=== PATIENT | male | born 1965 | race Caucasian/White ===

== ENCOUNTER → 2025-01-25 09:52 | Outpatient (REF) | payer OTHER, SELFPAY | LOC: RAD 09:52 | PROVIDERS: ATTENDING PHYSICIAN Thoracic Surgery (Cardiothoracic Vascular Surgery); FAMILY PHYSICIAN Internal Medicine | DX: I25.10 Atherosclerotic heart disease of native coronary artery without angina pectoris (principal); Z01.810 Encounter for preprocedural cardiovascular examination | CPT/HCPCS: 71275; 74174; 94010; Q9967 ==

== ENCOUNTER 2025-02-01 04:36 | Inpatient (IN) | payer OTHER, SELFPAY ==
[2025-01-25 12:04] VITALS: BMI 25.6
[2025-01-25 12:42] LABS: % Basophils 0.7 % (0-2); % Eosinophils 1.4 % (0-6); % Immature Granulocytes 0.3 % (0-0.5); % Lymphocytes 40.1 % (20.5-51.1); % Monocytes 9.5 % (1.7-9.3); Absolute Eosinophils 0.1 10^3/uL (0-0.7); Absolute Lymphocytes 2.4 10^3/uL (1.2-3.4); Absolute Monocytes 0.6 10^3/uL (0.1-0.6); Absolute Neutrophils 2.8 10^3/uL (1.4-6.5); Hematocrit 40.1 % (39.0-52.0); Hemoglobin 13.6 g/dL (13.0-18.0); Mean Corp Hgb Conc. 33.9 g/dL (33.0-37.0); Mean Corpuscular Hgb 31.3 pg (27.0-31.0); Mean Corpuscular Volume 92.4 fL (80.0-94.0); Mean Platelet Volume 9.4 fL (7.4-10.4); Nucleated Red Blood Cells % 0 % (-); Platelet Count 277 10^3/uL (130-400); Red Blood Cell Count 4.34 10^6/uL (4.70-6.10); Red Cell Dist. Width 12.4 % (11.5-14.5); White Blood Cell Count 5.9 10^3/uL (4.8-10.8)
[2025-01-25 12:52] LABS: APTT 33.1 Sec (23.4-35.0); INR 0.93; PT 12.9 Sec (11.4-14.6)
[2025-01-25 12:53] LABS: Urine Albumin Negative (Neg - Trace); Urine Bilirubin Negative (Negative); Urine Character Clear (Clear); Urine Glucose Negative (Negative); Urine Ketone Negative (Negative); Urine Leukocyte Negative (Negative); Urine Nitrite Negative (Negative); Urine Occult Blood Negative (Negative); Urine Specific Gravity 1.005 (<1.030); Urine Urobilinogen Negative (Neg - 1+)
[2025-01-25 12:55] LABS: Urine Color Straw
[2025-01-25 13:06] LABS: ALT (SGPT) 35 U/L (0-50); AST (SGOT) 28 U/L (17-59); Alkaline Phosphatase 70 U/L (38-126); Blood Urea Nitrogen 18 mg/dl (9-20); Calcium 9.8 mg/dl (8.4-10.2); Carbon Dioxide 28 mmol/L (22-30); Chloride 101 mmol/L (98-107); Direct Bilirubin 0.1 mg/dl (0.0-0.4); Estimated Creatinine Clearance 96 ml/min; Glucose 93 mg/dl (70-99); Potassium 4.7 mmol/L (3.5-5.1); Sodium 138 mmol/L (135-145); Total Bilirubin 1.6 mg/dl (0.2-1.3); Total Protein 7.4 g/dl (6.3-8.2); eGFR > 60.00
--- NOTE | 2025-01-25 13:28 | CM ---
CM met w/ patient, spouse and PEDRITO Mcgowan during PATs for planned CT Surgery, mid-[facility] 02/01.
DIL provided translation as patient speaks primarily Estonian.
Pt. resides w/ spouse in a private, 2 ST home w/ 1 SHANNEN. Functionally, patient is indep. w/ ADLs, mobility without the use of any assisted device.
Pt. has RX plan and uses [facility] [address] for prescription needs.
We reviewed pre and post op routines.
Soap, shower instructions and Cardiac Surgery booklet provided.
We discussed post op MD appointment, Cardiac Rehab and visit from CT Transitional Care RN.
We reviewed post op restrictions to include lifting, driving restrictions.
Plan is for CT Surgery, 02/01.
Anticipated DC plan is for home w/ CT Transitional Care RN.
CM to follow.
[2025-01-25 14:30] LABS: Glycohemoglobin (HgbA1c) 5.1 % (4.0-5.6)
[2025-02-01] VITALS (16 sets, daily range): BP systolic 77–143; BP diastolic 54–88; BMI 25.5
[2025-02-01] MEDS: BACTROBAN 2% OINTMENT 1 APPLIC NASAL ×2 (05:14→20:53)
[2025-02-01] MEDS: PROTONIX 40 MG PO (05:15)
[2025-02-01] MEDS: MAGNESIUM OXIDE 500 MG PO (05:15)
[2025-02-01] MEDS: LOPRESSOR 25 MG PO (05:15)
--- NOTE | 2025-02-01 05:34 | PTCARENOTE ---
pt arrived to CVICU for SDA for CABG with dr Worrell. pt is Armenian speaking and language line is used. pt is clipped and prepped. x2 home CHG showers confirmed. CHG wipes used after pt was clipped. new gown and sheets provided. all admission
questions answered. home meds reviewed. pt asked to removed all jewlery, dentures, etc. pre-op meds given. pt awaiting dr Worrell and CVOR.
--- NOTE | 2025-02-01 06:08 | W.CVOR.SURPR ---
CVOR Surgeon Immed Pre Op
-
I have examined this patient prior to performance of the scheduled procedure.
The patient's condition is unchanged from the time of the dictated/written History and
Physical and the patient is able to undergo the scheduled procedure.
RA MIDCAB
[2025-02-01 07:40] LABS: Urine Albumin Negative (Neg - Trace); Urine Bilirubin Negative (Negative); Urine Character Clear (Clear); Urine Color Yellow; Urine Glucose Negative (Negative); Urine Ketone Negative (Negative); Urine Leukocyte Negative (Negative); Urine Nitrite Negative (Negative); Urine Occult Blood 2+ (Negative); Urine Urobilinogen Negative (Neg - 1+)
[2025-02-01 08:22] LABS: ACT+ - POC 98 Seconds (82-134)
[2025-02-01 08:36] LABS: B.E. - POC -0.8 mmol/L; Glucose - POC 115 mg/dl (70-99); HCO3 - POC 25 mmol/L (21-28); Hematocrit - POC 36 % PCV (42-52); Hemodilution- POC No; Hemoglobin Calculated - POC 12.2; Ionized Calcium - POC 1.18 mmol/L (1.15-1.33); Lactate - POC 1.48 mmol/L (0.36-0.75); O2 Saturation %Calculated-POC 96.9 % (94-98); PCO2 - POC 47 mmHg (35-48); PO2 - POC 96 mmHg (83-108); Potassium - POC 4.6 mmol/L (3.5-5.1); Sodium - POC 144 mmol/L (136-145); Specimen Type - POC Arterial; pH - POC 7.34 (7.35-7.45)
--- NOTE | 2025-02-01 08:52 | CM ---
Patient in OR today for planned CT Surgery.
Reviewed pre admission assessment. Pt. resides w/ spouse in a private, 2 STH/1STE. Functionally, patient is indep. prior to admission w/ ADLs, mobility.
Antic. DC plan is for home w/ family + CT Transitional Care RN.
CM to follow.
[2025-02-01 09:30] LABS: ACT+ - POC 511 Seconds (82-134)
[2025-02-01 09:56] LABS: ACT+ - POC 454 Seconds (82-134)
[2025-02-01 10:15] LABS: B.E. - POC -4.3 mmol/L; Glucose - POC 209 mg/dl (70-99); HCO3 - POC 24 mmol/L (21-28); Hematocrit - POC 35 % PCV (42-52); Hemodilution- POC No; Hemoglobin Calculated - POC 12.1; Lactate - POC 1.25 mmol/L (0.36-0.75); O2 Saturation %Calculated-POC 96.3 % (94-98); PCO2 - POC 58 mmHg (35-48); PO2 - POC 102 mmHg (83-108); Sodium - POC 143 mmol/L (136-145); Specimen Type - POC Arterial; pH - POC 7.23 (7.35-7.45)
[2025-02-01 10:28] LABS: ACT+ - POC 434 Seconds (82-134)
[2025-02-01 10:44] LABS: B.E. - POC -1.6 mmol/L; Glucose - POC 182 mg/dl (70-99); HCO3 - POC 27 mmol/L (21-28); Hematocrit - POC 37 % PCV (42-52); Hemodilution- POC No; Hemoglobin Calculated - POC 12.6; Ionized Calcium - POC 1.14 mmol/L (1.15-1.33); Lactate - POC 1.22 mmol/L (0.36-0.75); O2 Saturation %Calculated-POC 95.6 % (94-98); PCO2 - POC 62 mmHg (35-48); PO2 - POC 95 mmHg (83-108); Potassium - POC 5.5 mmol/L (3.5-5.1); Sodium - POC 143 mmol/L (136-145); Specimen Type - POC Arterial; pH - POC 7.24 (7.35-7.45)
[2025-02-01 10:45] LABS: ACT+ - POC 104 Seconds (82-134)
--- NOTE | 2025-02-01 11:00 | W.PN.CT.SURG ---
CT Surgery Operative Note
-
CARDIAC SURGERY OPERATIVE REPORT
Preoperative Diagnosis: Coronary Artery Disease with proximal LAD involvement and recent STEMI requiring PCI intervention to the RCA and proximal circumflex
Postoperative Diagnosis: Same
Procedure(s) Performed:
1. Robotic assisted MIDCAB (single-vessel bypass REINOSO in situ to LAD)
2. Robotic assisted harvest of internal mammary artery with anterior mini thoracotomy for CABG
3. Transesophageal echocardiography
4. Transonic Flowprobe assessment of REINOSO graft
Date of Surgery: 02/01/2025
Comorbidities:
1. Coronary artery disease involving the proximal LAD, chronic total occlusion
2. Recent STEMI requiring PCI intervention
3. Hypertension
4. Hyperlipidemia
5. Ischemic cardiomyopathy with LVEF of approximately 40% with severe hypokinesis of the inferior wall
Attending Surgeon: Cecilio Worrell MD, MS
Assistants: Michaela Chiu PA-C (present and necessary to first line supervisor, exchanging robotic instruments, retraction, suction, exposure, suture management, and wound closure under my direction)
Anesthesiology: Aj Cerna MD and TRACI Hill
Scrub and Circulating RNs: Yessi Vasques RN, Hilda Menard RN
Tire Layer: Asia Madrigal CCP
Anesthesia: GETA
EBL: per perfusion records
Products: None
Indication(s) for Procedures: This is a 60-year-old male who presented to [facility] with abdominal pain and was found to have ST elevation [place]. He underwent a Jacquard Loom Card Changer procedure and had stenting to his RCA. He was also found to have
significant CAD of the left system and so was brought back electively for intervention on his proximal circumflex. He had a chronic total occlusion of the REINOSO proximally with very faint collateralization to the LAD distally. The STS risk was
discussed with the patient in the office and the shared decision making was to pursue a single-vessel bypass using his mammary artery to his LAD via a mini invasive approach as part of a hybrid procedure for total revascularization.
Conduit(s) Quality/Internal Diameter:
REINOSO -thin pedicle, flow probe analysis, mean flow of 10 cc/min, PI of 2.5
Target(s) Quality/Internal Diameter:
LAD -average, small and atretic appearing able to easily fit a 1.0 mm shunt, there was some backbleeding from the vessel before shunt placement
Findings: His left ventricular ejection fraction did improve on our preoperative echocardiogram intraoperatively, it was approximately 50% with no significant regional wall motion abnormalities. Following surgery his EF remained the same at
approximately 50%. There were no new regional wall motion abnormalities at the inclusion of the case. The REINOSO was harvested in a thin pedicle fashion. The mammary graft was verified with Doppler probe to have excellent signals. Flow probe numbers
were listed above. He did not require any blood products, did not require any inotropic support, and did not require any pacing wires as he maintained sinus rhythm throughout the procedure.
Description of Procedure: The patient was taken to the operating room. Their identity and procedure to be performed were verified and they were positioned supine on the operating table. Induction via general anesthesia with endotracheal intubation
was performed and central venous access and arterial monitoring were inserted. A preoperative transesophageal echocardiogram was performed to assess cardiac function and valvular function. The patient was then prepped and draped from chin to feet in
a sterile fashion and positioned with left side bumped up and left arm down. A preoperative time-out was performed with all members of the team present. A Veress needle was used to enter the chest after stopping ventilation with the left lung
verified by anesthesia. We started with slow pressure insufflation which they tolerated. An 8 mm port was inserted in the fourth intercostal space laterally and a camera was inserted verifying no intrathoracic iatrogenic injuries. 2 additional
ports (8 mm and 8mm) were placed along the midaxillary line on either side of the camera port. Single 12 mm air seal port was used for the assistant clinical nurse manager to pass instruments and sutures. The robotic platform was then docked and targeted towards the
mammary. The mammary was harvested in a skeletonized fashion. A posterior pericardiotomy was created to facilitate drainage. Once sufficient length was obtained, an anterior pericardiotomy was created to identify the distal target. Full
heparinization was given (a total of 27,000 units). 3 Hem-o-bren clips were used to occlude and divide the mammary distally at its bifurcation, and a single silk suture was used to secure the mammary at the clip to the pericardium overlying the LAD
target. The robot platform was then undocked and the patient and a left anterior thoracotomy was created over the target vessel. Upon entering the thoracic cavity the mammary and LAD were visible. A soft tissue and thoracotomy retractor was placed
to facilitate exposure and a pericardial well was created. A cardiac stabilizer was fixed and placed over the target. The ACT was confirmed to be over 400.
The cardiac suction stabilizer was used to isolate the LAD target. The distal end of the mammary was prepped and beveled to size. We verified orientation and length of the PRABHJOT and found brisk flow. A coronary arteriotomy was created and enlarged
with coronary schwartz scissors. A 1mm shunt was inserted to facilitate exposure and continued point hope ira coronary perfusion. An end-to-side anastomosis was created with a 7-0 prolene. The bulldog on the mammary was removed which demonstrated excellent
graft flow. The shunt was then remove and demonstrated excellent point hope ira flow. Appropriate hemostasis was confirmed. The mammary graft was inspected and was free from kinking or twisting and flowprobe evaluation demonstrated good flow and PI. A test
dose of protamine was administered and the patient was monitored for any adverse reaction before resuming protamine. A 19F galilea drain into the pericardium and through the posterior pericardiotomy into the left chest. Fascia was approximated with #1
vicryl suture. Local analgesia was administered to the surgical sites. The subcutaneous, dermis and epidermis were closed in layers in a running fashion. The skin wound was cleansed and dressed.
All instrument, sponge, and needle counts were confirmed to be correct x 2 at the end of the operation. The patient was transferred to the cardiac intensive care unit extubated in critical but stable condition.
I, Dr. Cecilio Worrell, was present, scrubbed for, and performed all critical elements of this procedure.
Cecilio Worrell MD, MS
Cardiothoracic Surgeon
[facility]
This operative dictation was created using the [employer] dictation system. Please excuse any grammatical, typographical, or 'sound alike' errors
--- NOTE | 2025-02-01 11:25 | PTCARENOTE ---
Received from [facility] @ 1120. Patient lethargic but arousable. Drips Levo and insulin. Sinus bradycardia HR 59 BP 86/50. No wires. Heart sounds audible. Rub noted. Radial pulses palpable bilaterally. Pedal pulses present biltarally on the
posterior tibialis. No edema noted. r but diminished anterior bilaterally. POX 95% 6L simple mask. 1x left pleural chest tube drainging red fluid WNL. Set to wall suction at -20 w/ no crepitus, tidaling, or air leaks. Thapa draining WNL. Left
mid clavicular incision distal to xiphoid process. dry, approximated, and open to air. CT dressing dry and intact. NATHALY shetty w/ marilu @ 45. CI 2.82 CO 5.52. PAP 31/10. Left radial A-line. Right forearm PIV patent and intact.
--- NOTE | 2025-02-01 11:36 | W.PN.UPDATE ---
Update Note
Progress Note Update
60 year old male electively admitted 02/01/25 for CABG due to LAD disease. Recent JUSTUS-RCA d/t STEMI (11/30/24). Prior PCI of LM/dLCx
IV fluids: 1500
U.O.:� 350
Blood:� none
Wires:� none
Drips: Levophed @ 6
Sedatives:� N/A
�
NEURO: drowsy, extubated in the OR, pupils +2mm B/L, LEVI spontaneously
RESP: Lungs clear B/L. 1 L pleural/mediastinal (0cc on arrival) chest tube to -20cm suction. No air leak, no crepitus
CV: RRR +S1, S2, no S3, no�rub, no murmur. Dermabond to mini left anterior thoracotomy. RIJ w/Knobel locked @ 46cm. PA 01/11; CVP 8; C.O XX/CI XX
ABD: round, soft, no BS
EXT: no edema, +2/4 DP pulses B/L, no femoral bruit, left radial A-line intact
: Thapa with clear yellow urine
�
A/P: POD #0 s/p RA MIDCAB x 1 REINOSO-LAD
ALESSANDRA: EF�55-60%
- extubated in OR
- Insulin x 24h
# CAD
- begin ASA, Plavix, Zetia, statin, beta navi
�
# acute surgical blood loss anemia-expected
- trend CBC
�
�# Incidental finding of right pulmonary nodules on CT scan
- F/U CT chest recommended in 12 months to monitor
--- NOTE | 2025-02-01 11:41 | W.PN.CD ---
Addendum entered and electronically signed by Julian Carlisle MD 02/01/25 14:39:
I saw and examined the patient.
The MATE FOURTH's note was reviewed and I agree with the note.
Comment: 60 y/o male (patient of Dr. Bland) with hypertension, dyslipidemia, improved ICM (previously EF 40%), and hx STEMI/CAD with stenting who is now s/p MIDCAB.
- wean inotropes as able
- routine post-op care
Original Note:
Today's Communication / Plan
-
-close post-op monitoring and care per CT surgery and CVICU protocol
Impression / Plan
-
60 y/o male (patient of Dr. Bland) with hypertension, dyslipidemia, improved ICM (previously EF 40%), and hx STEMI/CAD with stenting who is now s/p MIDCAB.
CAD with hx NH and stenting:
-now s/p robotic assisted MIDCAB (single-vessel bypass REINOSO in situ to LAD). Robotic assisted harvest of internal mammary artery with anterior mini thoracotomy for CABG with Dr. Worrell 02/01/25.
-extubated and on face mask
-CT and pedro in place
-remains on Levophed, which requires intensive monitoring
-post-op EKG stable in SR
-follow telemetry
-ASA, statin, BB
HTN:
-monitor post-op, currently on levophed
HLD:
-statin
ICM, improved:
-EF was 40%, now arpund 50%
-on ARB and BB as OP
Data:
Echo 01/24/25: Overall left ventricular function low normal with wall motion abnormality. EF 50 to 55%. Stage I diastolic dysfunction. No significant valve disease.
Physical Exam
Vital Signs/Labs
Vital Signs
BP Pulse Ox
141/82 99
02/01/25 04:43 02/01/25 04:42
01/31/25 02/01/25 02/02/25
06:59 06:59 06:59
Actual Weight 78.4 kg
PT 12.9 Sec (11.4-14.6) 01/25/25 12:18
INR 0.93 01/25/25 12:18
APTT 33.1 Sec (23.4-35.0) 01/25/25 12:18
Physical Exam
Constitutional: No acute distress
Cardiovascular: Rhythm & rate is regular
Respiratory: Other (on facemask; coarse lung sounds, CT in place)
Neuro/Psych: Other (recovering from anesthesia)
Data Reviewed
-
Date of Service: February 01, 2025
EKG: Tracing Personally Visualized and interpreted (NSR LAD- no acute change from previous)
Echo: Report Reviewed by me (as noted)
Labs: Labs Reviewed by me
[2025-02-01 11:49] LABS: B.E. -3.2 mmol/L; Hematocrit 35.8 % (39.0-52.0); Ionized Calcium 1.13 mMOL/L (1.15-1.33); O2 Saturation % 98.4 % (94-98); PCO2 51 mmHg (35-48); PO2 107 mmHg (83-108); Platelet Count 224 10^3/uL (130-400); Potassium 4.3 mMOL/L (3.5-5.1); Sodium 137 mMOL/L (136-145); pH 7.28 (7.35-7.45)
[2025-02-01 12:00] LABS: APTT 33.5 Sec (23.4-35.0); INR 1.26; PT 16.3 Sec (11.4-14.6)
[2025-02-01 12:02] LABS: Blood Urea Nitrogen 18 mg/dl (9-20); Estimated Creatinine Clearance 109 ml/min; Glucose 132 mg/dl (70-99); Magnesium 2.3 mg/dl (1.6-2.3)
[2025-02-01 12:05] LABS: Glucose - Point of Care 135 mg/dl (70-99)
[2025-02-01 12:16] LABS: Glucose - Point of Care 135 mg/dl (70-99)
[2025-02-01] MEDS: NSS 500 IV (12:17)
[2025-02-01] MEDS: ANCEF 10 IV ×2 (12:17)
[2025-02-01] MEDS: NEURONTIN PO (12:17)
[2025-02-01] MEDS: CALCIUM GLUCONATE 100 IV (12:18)
--- NOTE | 2025-02-01 12:36 | CON.INTV ---
Consultation
Consultation Request
Date/Time Consultation Requested: 02/01/2025 - 105
Date/Time Consultation Performed: 02/01/2025 - 1116
Requesting Provider: CHARLES Saxena
Performing Provider: Dr. Lin
Reason for Consultation: s/p MIDCAB
Medical History
-
Chief Complaint: Elective MIDCAB
History of Present Illness:
60-year-old male former tobacco smoker with a past medical history of multivessel CAD, hypertension, GERD, dyslipidemia and ICM who presents with elective minimally invasive direct coronary artery bypass. Patient known to the cardiothoracic surgery
service with last visit on 01/16/[address] Worrell. Patient had gone to [facility] for upper abdominal pain with nausea and found to have an ST elevation HI on 11/30/2024 and taken to [facility] where he was found to have significant
multivessel CAD involving the mid RCA as well as an occluded ostial LAD with collaterals and significant circumflex and ramus lesions. He underwent successful stenting and aspiration thrombectomy of the RCA and brought back for additional stenting
on 12/04/2024 to the mid�distal circumflex and distal left main into the proximal circumflex with good result. 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 Risks and benefits of a cardiothoracic intervention were reviewed and patient
agreed to the procedure. Today he went underwent a robotic assisted minimally invasive direct coronary artery bypass with REINOSO in situ to LAD. Procedure went well with no complications and he was transferred to the CVICU postoperatively.
Clinical Nursing Professor service is now consulted for additional management/recommendations.
When I saw the patient, he had a ready been extubated in the CV[facility]. He is currently on a facemask with 6 L/min, breathing comfortably and saturating 93%. Heart rate 76, BP via left radial A-line: 106/56, BP via NIBP: 90/57, PAP 31/14 and CO/CI:
7.38/3.77. Currently on Levophed at 1 mcg/min and insulin drip at 2.3 units/hr. Left pleural chest tube in place.
PMHx: History of acute inferior HI, CAD, hypertension, GERD, dyslipidemia, ICM
PSHx: Coronary catheterization with stent placement
Past Medical History
Past Medical History: Other (Above as per HPI)
Past Surgical History: Other (Above as per HPI)
Social History
Tobacco: Former Smoker (Smoked 1 PPD x 25 years)
Alcohol: None
Drug: None
Employment: Employed (Construction)
Family History
Family History: CAD (Mother) and Other (Father: Stomach issues)
Allergies / Home Medications
Allergies
Allergy/AdvReac Type Severity Reaction Status Date / Time
No Known Allergies Allergy Verified 01/23/25 11:37
Home Medications
�Medication �Instructions �Recorded �Confirmed �Last Taken �Type
aspirin 81 mg PO 1XD Blood Clot 02/01/25 02/01/25 01/31/25 21:00 History
Prevention/Tx
atorvastatin 40 mg tablet 40 mg 1XD High Cholesterol 02/01/25 02/01/25 01/31/25 20:00 History
famotidine 20 mg tablet 20 mg PO HS Gastrointestinal Issue 02/01/25 02/01/25 01/31/25 20:00 History
metoprolol tartrate 50 mg tablet 50 mg PO Q12H Heart 02/01/25 02/01/25 01/31/25 20:00 History
Disease/Condition
valsartan 40 mg tablet 40 mg 1XD Blood Pressure 02/01/25 02/01/25 01/31/25 20:00 History
Review of Systems
-
Unable to Obtain full review of systems at this time due to: Acuity
Vitals / Labs / Diagnostic Testing
Vital Signs
Temp Pulse Resp BP Pulse Ox
95.7 F L 63 15 106/71 99
02/01/25 12:00 02/01/25 12:10 02/01/25 12:10 02/01/25 12:00 02/01/25 12:10
Lab Data
02/01/25 11:31
Laboratory Results
02/01/25
11:31
PT 16.3 H
INR 1.26
APTT 33.5
pH 7.28 L
pCO2 51 H
pO2 107
HCO3 24.0
O2 Delivery Level
Diagnostic Testing:
Physical Exam
-
HEENT: Normocephalic and Anicteric
Cardiovascular: S1/S2 and Peripheral Edema (negative)
Respiratory: Wheeze (negative), Rales (negative), Rhonchi (negative) and Non-Labored Respirations
GI: Soft, Non Distended, Non Tender and Normal Bowel Sounds
Neurology: Tremors (negative) and Other (Drowsy but easily arousable to voice)
Skin: Warm and Dry
General: Respiratory Distress (negative), Comfortable, Fever (negative) and Chills (negative)
Assessment
-
Assessment: 60-year-old male former tobacco smoker with a past medical history of multivessel CAD, hypertension, GERD, dyslipidemia and ICM who presents with elective minimally invasive direct coronary artery bypass. Patient known to the
cardiothoracic surgery service with last visit on 01/16/[address] Worrell. Patient had gone to [facility] for upper abdominal pain with nausea and found to have an ST elevation HI on 11/30/2024 and taken to [facility] where he was
found to have significant multivessel CAD involving the mid RCA as well as an occluded ostial LAD with collaterals and significant circumflex and ramus lesions. He underwent successful stenting and aspiration thrombectomy of the RCA and brought
back for additional stenting on 12/04/2024 to the mid�distal circumflex and distal left main into the proximal circumflex with good result. 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 Risks and benefits of a cardiothoracic intervention
were reviewed and patient agreed to the procedure. On 02/01/2025, he went underwent a robotic assisted minimally invasive direct coronary artery bypass with REINOSO in situ to LAD. Procedure went well with no complications and he was transferred to
the CVICU postoperatively. Clinical Nursing Professor service is now consulted for additional management/recommendations.
Chronic conditions ROD PILER: History of acute inferior HI, CAD, hypertension, GERD, dyslipidemia, ICM
Impression:
#Multivessel CAD with proximal LAD involvement with recent STEMI requiring PCI intervention to the RCA + proximal left circumflex now s/p robotic assisted MIDCAB (REINOSO in situ to LAD � POD #0)
#Acute anemia due to above
#Acute respiratory acidosis
#Hypocalcemia
#Hypertension
#Hyperlipidemia
#ICM with LVEF 40% with severe hypokinesis of the inferior wall - his EF has recovered with ALESSANDRA on 02/01/2025 showing LVEF 45-50% with no regional WMA seen and normal RV function
#Former tobacco smoker (Smoked 1 PPD x 25 years)
Plan:
Patient had already been extubated prior to arriving to the CVICU. Currently on a facemask with 6 L/min nasal cannula, breathing comfortably and saturating 93%
Wean down supplemental O2 and can change to nasal cannula once he is more awake and.
Maintain SpO2 >90-94%
Given that he had acute respiratory acidosis earlier today, would re-check a venous blood gas tomorrow morning to assure that the pH + pCO2 are stable
prn nebulized bronchodilators - not currently bronchospastic
Once he is more awake, would encourage incentive spirometer use q1hr while awake
Pulmonary artery catheter parameters will be followed
Pressors/antihypertensive/inotropes/diuretics will be provided as needed
Maintain MAP>65
Replete electrolytes with K>4, Mg>2
Monitor chest tube output (left pleural chest tube x 1)
Monitor hemoglobin
Monitor platelet count and coags
Transfuse blood products as needed to maintain Hb>7g/dL, plt>50k (given post-operative status)
CT surgery managing chest tubes
Monitor blood sugar to maintain euglycemia with goal BG 110-140
Insulin drip per protocol
Aspiration precautions
DVT prophylaxis
Early nutrition
Early mobilization
Critical care statement: A total of 38 minutes of critical care time was provided for this patient today. This includes management of ventilator, spontaneous breathing trial, arterial blood gases, pressors, of unstable vital signs, evaluation of the
patient at bedside, reviewing the patient's pertinent medical records including radiographs, microbiology, laboratory evaluations, and discussion with primary team and critical care nursing.
--- NOTE | 2025-02-01 12:45 | PTCARENOTE ---
CT SCHOOL TEACHER Maria Del Carmen aware of urine output. [address] SCHOOL TEACHER Maria Del Carmen.
[2025-02-01] MEDS: LR 500 IV (13:02)
[2025-02-01 13:11] LABS: Glucose - Point of Care 120 mg/dl (70-99)
[2025-02-01] MEDS: OFIRMEV 100 IV (13:40)
[2025-02-01 14:06] LABS: Glucose - Point of Care 89 mg/dl (70-99)
[2025-02-01 15:09] LABS: Hematocrit 35.5 % (39.0-52.0); Hemoglobin 12.3 g/dL (13.0-18.0); Platelet Count 224 10^3/uL (130-400)
[2025-02-01 15:11] LABS: Glucose - Point of Care 99 mg/dl (70-99)
[2025-02-01] MEDS: LOW STRENGTH ASPIRIN 81 MG PO (15:57)
[2025-02-01] MEDS: ANCEF 5 IV (15:57)
[2025-02-01] MEDS: TYLENOL PO (16:01)
[2025-02-01 16:09] LABS: Glucose - Point of Care 100 mg/dl (70-99)
[2025-02-01] MEDS: NEURONTIN 100 MG PO ×2 (16:24→21:32)
[2025-02-01] MEDS: PACERONE 200 MG PO ×2 (16:24→21:32)
--- NOTE | 2025-02-01 16:26 | PTCARENOTE ---
Patient assessment unchanged. Levo and insulin titrating per protocol. Patient tolerating sips of water and ice chips. POX 97% 4L NC. Last CI 3.28 CO 6.43.
[2025-02-01 17:53] LABS: Glucose - Point of Care 90 mg/dl (70-99)
--- NOTE | 2025-02-01 18:30 | PTCARENOTE ---
BP stable. Ordered to removed A-line and [place] per CT BUS ASSISTANT Maria Del Carmen.
[2025-02-01 20:09] LABS: Glucose - Point of Care 110 mg/dl (70-99)
[2025-02-01] MEDS: SENOKOT-S 1 TABLET PO (20:53)
[2025-02-01] MEDS: TYLENOL 1000 MG PO (21:32)
[2025-02-01 22:08] LABS: Glucose - Point of Care 94 mg/dl (70-99)
[2025-02-01 22:59] LABS: Glucose - Point of Care 101 mg/dl (70-99)
--- NOTE | 2025-02-01 23:30 | PTCARENOTE ---
Patient received resting in bed. Patient's son at bedside - Interprets for patient. Patient A+A+Ox3. No neurological deficits noted. No c/o pain or discomfort. Room air. SpO2 92%. No s/s of respiratory distress. No c/o SOB. Left Pleural
chest tube intact - Small amount of red drainage - No air leak - No crepitus noted - Dressing intact. Sinus Rhythm. Heart rate 80-90's. Patient with no c/o chest pain, pressure or discomfort. Hypoactive to normoactive bowel sounds. No BM. No
c/o nausea. No vomiting. Thapa catheter - Temperature sensing - Shira, yellow urine - Outputs as documented. Positive, palpable pulses. Left anterior chest to left lateral chest - Incision - Surgical adhesive - Intact - Open to air. Right I.J.
Cordis. Insulin gtt. Assessment as documented.
[2025-02-02] VITALS (16 sets, daily range): BP systolic 100–135; BP diastolic 63–77; PULSE 79; O2SAT 95–96; BMI 26.1
[2025-02-02 00:15] LABS: Glucose - Point of Care 104 mg/dl (70-99)
[2025-02-02] MEDS: ANCEF 5 IV ×2 (00:24→09:19)
[2025-02-02] MEDS: DILAUDID 0.25 MG IV (00:25)
--- NOTE | 2025-02-02 01:00 | PTCARENOTE ---
Patient resting in bed. Dozing intermittently. IV Dilaudid 0.25mg given for pain management. O2 2L HS. SpO2 94%. Assessment as documented.
[2025-02-02 01:14] LABS: Glucose - Point of Care 108 mg/dl (70-99)
[2025-02-02 02:28] LABS: Glucose - Point of Care 106 mg/dl (70-99)
[2025-02-02 04:30] LABS: Glucose - Point of Care 105 mg/dl (70-99)
[2025-02-02 04:42] LABS: Venous Blood Gas B.E. -1.3 mmol/L (-4 to +4); Venous Blood Gas HCO3 24.3 mmol/L (22-27); Venous Blood Gas O2 Sat % 95.7 %; Venous Blood Gas pCO2 43 mmHg (35-48); Venous Blood Gas pH 7.36 (7.32-7.43); Venous Blood Gas pO2 73 mmHg (30-50)
[2025-02-02 04:46] LABS: Venous Blood Gas O2 Therapy 6L/min
[2025-02-02 04:47] LABS: Hematocrit 36.5 % (39.0-52.0); Hemoglobin 12.6 g/dL (13.0-18.0); Mean Corp Hgb Conc. 34.5 g/dL (33.0-37.0); Mean Corpuscular Hgb 31.8 pg (27.0-31.0); Mean Corpuscular Volume 92.2 fL (80.0-94.0); Mean Platelet Volume 9.7 fL (7.4-10.4); Platelet Count 225 10^3/uL (130-400); Red Blood Cell Count 3.96 10^6/uL (4.70-6.10); Red Cell Dist. Width 12.5 % (11.5-14.5); White Blood Cell Count 15.5 10^3/uL (4.8-10.8)
[2025-02-02] MEDS: ROXICODONE 5 MG PO ×2 (05:11→20:33)
[2025-02-02] MEDS: TYLENOL 1000 MG PO ×3 (05:12→22:37)
[2025-02-02 05:22] LABS: Blood Urea Nitrogen 20 mg/dl (9-20); Calcium 8.9 mg/dl (8.4-10.2); Carbon Dioxide 24 mmol/L (22-30); Chloride 107 mmol/L (98-107); Estimated Creatinine Clearance 109 ml/min; Glucose 103 mg/dl (70-99); Potassium 4.2 mmol/L (3.5-5.1); Sodium 139 mmol/L (135-145); eGFR > 60.00
[2025-02-02 06:02] LABS: Glucose - Point of Care 114 mg/dl (70-99)
--- NOTE | 2025-02-02 06:15 | PTCARENOTE ---
Patient slept. Roxicodone 5mg PO for pain management. AM lab collected and sent. Patient given CHG bath and linens changed. Thapa catheter removed at 0600 without difficulty - Due to void at 12pm. OOB to chair without difficulty. Standing
scale weight 80.1 kg. Assessment/Interventions as documented.
--- NOTE | 2025-02-02 06:37 | W.PN.CT ---
Today's Communication / Plan
-
-pod #1
-doing well, no issues overnight, no complaints
-CT output: L pleur/med 40/180 in 12/24 hrs
-current meds (ASA, Plavix, Lipitor, Amio, Lopressor, Protonix)
-encourage IS, OOB, ambulate
Assessment / Plan
-
-CAD - s/p Robotic assisted MIDCAB (single-vessel bypass REINOSO in situ to LAD) by Dr. Worrell on 02/01/25, pod #1
- LVEF 50% pre and postop with no significant regional wall motion abnormalities
- Coronary artery disease involving the proximal LAD, chronic total occlusion
- Recent STEMI requiring PCI intervention
- Hypertension
- Hyperlipidemia
- Ischemic cardiomyopathy with LVEF of approximately 40% with severe hypokinesis of the inferior wall
- Acute postop blood loss anemia- stable, no transfusion
- Acute postop hypovolemia with subsequent hypervolemia
- Acute postop atelectasis
Discussed patient care with: Nursing and Care Team
Subjective
-
Date of Service: February 02, 2025
Objective Data
-
PT 16.3 Sec (11.4-14.6) H 02/01/25 11:31
INR 1.26 02/01/25 11:31
APTT 33.5 Sec (23.4-35.0) 02/01/25 11:31
Vital Signs
Vital Signs
Temp Pulse Resp BP Pulse Ox
99.4 F 85 18 119/71 93
02/02/25 03:00 02/02/25 03:10 02/02/25 03:00 02/02/25 03:00 02/02/25 03:10
CT Intake/Output/Weight
02/01/25 02/01/25 02/02/25
06:59 18:59 06:59
Intake Total 1031.7 / 1890.7 859.0 / 1890.7
Output Total 490 / 1060 570 / 1060
Balance 541.7 / 830.7 289.0 / 830.7
SaO2: 93
Physical Exam
-
General: Awake and AOx3
Cardiovascular: Regular rate & rhythm, No Murmurs and No Rub
Respiratory: Decreased Breath Sounds
Sternum: Stable
Incision: Clean, Dry and Intact
Extremities: No Edema (2+DPs b/l)
Abdomen: soft, nontender, nondistended, + decreased bowel sounds
Data Reviewed
-
Lab Results: Results Reviewed
Medications: Active Meds Reviewed
Chest X-Ray: Report Reviewed
ECG: Report Reviewed
--- NOTE | 2025-02-02 07:59 | W.PN.INTV ---
Today's Communication / Plan
Recommendations
Up OOB as tolerated
Removal of left-sided pleural chest tube per CT surgery team
Goal BG 110�140
Pain control
Cardiac rehab consult
Patient now being downgraded to CVICU�telemetry status. No additional recommendations at this time. Sales Training Representative/Pulmonary service will now sign off. Please reconsult if there are any additional questions/concerns, or if patient's respiratory
status deteriorates.
Assessment
-
Assessment: 60-year-old male former tobacco smoker with a past medical history of multivessel CAD, hypertension, GERD, dyslipidemia and ICM who presents with elective minimally invasive direct coronary artery bypass. Patient known to the
cardiothoracic surgery service with last visit on 01/16/[address] Worrell. Patient had gone to [facility] for upper abdominal pain with nausea and found to have an ST elevation [place] on 11/30/2024 and taken to the Client Development Manager where he was
found to have significant multivessel CAD involving the mid RCA as well as an occluded ostial LAD with collaterals and significant circumflex and ramus lesions. He underwent successful stenting and aspiration thrombectomy of the RCA and brought
back for additional stenting on 12/04/2024 to the mid�distal circumflex and distal left main into the proximal circumflex with good result. 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 Risks and benefits of a cardiothoracic intervention
were reviewed and patient agreed to the procedure. On 02/01/2025, he went underwent a robotic assisted minimally invasive direct coronary artery bypass with REINOSO in situ to LAD. Procedure went well with no complications and he was transferred to
the CVICU postoperatively. Sales Training Representative service is now consulted for additional management/recommendations.
Chronic conditions XRAY TECH: History of acute inferior KS, CAD, hypertension, GERD, dyslipidemia, ICM
Impression:
#Multivessel CAD with proximal LAD involvement with recent STEMI requiring PCI intervention to the RCA + proximal left circumflex now s/p robotic assisted MIDCAB (REINOSO in situ to LAD � POD #1)
#Acute anemia due to above
#Acute respiratory acidosis - now resolved
#Hypocalcemia - resolved
#Hypertension
#Hyperlipidemia
#ICM with LVEF 40% with severe hypokinesis of the inferior wall - his EF has recovered with ALESSANDRA on 02/01/2025 showing LVEF 45-50% with no regional WMA seen and normal RV function
#Former tobacco smoker (Smoked 1 PPD x 25 years)
Plan:
Patient had already been extubated prior to arriving to the CVICU on 02/01/2025. Currently on room air, breathing comfortably, saturating 94%
Wean down supplemental O2 and maintain SpO2 >90-94%
Blood gas recheck this morning shows stable pH at 7.36 with pCO2 43. No need to continue rechecking blood gases at this time
prn nebulized bronchodilators - not currently bronchospastic
Encourage incentive spirometer use q1hr while awake
Pulmonary artery catheter parameters will be followed
Pressors/antihypertensive/inotropes/diuretics will be provided as needed
Maintain MAP>65
Replete electrolytes with K>4, Mg>2
Monitor chest tube output (left pleural chest tube x 1)
Monitor hemoglobin
Monitor platelet count and coags
Transfuse blood products as needed to maintain Hb>7g/dL, plt>50k (given post-operative status)
CT surgery managing chest tubes
Monitor blood sugar to maintain euglycemia with goal BG 110-140
Insulin drip now discontinued - recommend to use ISS to maintain BG goal as above
Aspiration precautions
DVT prophylaxis
Early nutrition
Early mobilization
Patient now being downgraded to CVICU�telemetry status. No additional recommendations at this time. Sales Training Representative/Pulmonary service will now sign off. Thank you for allowing us to be involved in the care of this patient. Please reconsult if there
are any additional questions/concerns, or if patient's respiratory status deteriorates.
Total time spent today was 56 minutes for this encounter. Time includes reviewing laboratory test/imaging results, reviewing pertinent medical records, obtaining and reviewing medical history, performing an appropriate exam, ordering medications,
tests and procedures. Time also includes documentation of this encounter, coordinating patient care and communicating with other healthcare professionals. Total time does not include separately billed tests performed on this date of service.
Subjective Dataa
Subjective Data
Date of Service:
Date of Service: February 02, 2025
Chief Complaint: Sales Training Representative Follow Up
Subjective:
Patient was seen and evaluated today at bedside. Left pleural chest tube in place. Currently on room air breathing comfortably, saturating 94%. Heart rate 95. No acute events reported overnight. Remains afebrile.
Review of Systems
General: Other (Negative unless mentioned above)
Objective Data
Data Reviewed
Vital Signs / I&O / Oxygen:
Vital Signs
Temp Pulse Resp BP Pulse Ox
97.7 F 84 16 107/70 94
02/02/25 15:44 02/02/25 15:44 02/02/25 15:44 02/02/25 15:44 02/02/25 15:44
Intake and Output
02/01/25 02/02/25 02/03/25
06:59 06:59 06:59
Intake Total 1934.9 / 1934.9 251.8 / 251.8
Output Total 1330 / 1330 520 / 520
Balance 604.9 / 604.9 -268.2 / -268.2
SaO2 94
Nasal Cannula flow liters per 2
minute
Physical Exam
General: Respiratory Distress (negative), Comfortable, Chills (negative) and Sweats (negative)
HEENT: Normocephalic and Anicteric
Cardiovascular: S1-S2 and Peripheral Edema (negative)
Respiratory: Wheeze (negative), Crackles (negative), Rhonchi (negative), Non-Labored Respirations and Chest Tube (Left pleural chest tube x 1)
GI: Soft, Non Distended, Non Tender and Normal Bowel Sounds
Neurology: AO x 3 and Tremors (negative)
Skin: Warm, Dry, Cyanosis (negative) and Jaundice (negative)
Labs/Micro/Reports
Lab Data
02/02/25 04:24
02/02/25 04:24
[2025-02-02 08:24] LABS: Glucose - Point of Care 99 mg/dl (70-99)
--- NOTE | 2025-02-02 09:13 | W.PN.ANS.POP ---
Anesthesia Post Operative
- Anesthesia Post Op Note
Vital Signs Stable-See Nursing Note: Yes
Airway Patent: Yes
Adequate Pain Control: Yes
Change in Mental Status: No
Current Postoperative Nausea & Vomiting: No
Anesthesia Complications: No
General Anesthetic Recall: No
Unplanned Admission: No
Post Op Hydration Adequate: Yes
[2025-02-02] MEDS: LIDOCAINE 4% PATCH 1 PATCH TOPICAL (09:19)
[2025-02-02] MEDS: SENOKOT-S 1 TABLET PO ×2 (09:20→20:26)
[2025-02-02] MEDS: LIPITOR 40 MG PO (09:20)
[2025-02-02] MEDS: LOPRESSOR 12.5 MG PO ×3 (09:20→20:26)
[2025-02-02] MEDS: NEURONTIN 100 MG PO ×3 (09:20→22:36)
[2025-02-02] MEDS: PROTONIX 40 MG PO (09:20)
[2025-02-02] MEDS: PACERONE 200 MG PO ×3 (09:20→22:37)
[2025-02-02] MEDS: PLAVIX 75 MG PO (09:20)
[2025-02-02] MEDS: BACTROBAN 2% OINTMENT 1 APPLIC NASAL ×2 (09:21→20:26)
[2025-02-02] MEDS: LOW STRENGTH ASPIRIN 81 MG PO (09:21)
--- NOTE | 2025-02-02 09:35 | PTCARENOTE ---
assumed care of pt from previous shift RN, sinus rhythm on tele, VSS, + peripheral pulses, + rub, trace edema to bilateral lower extremities. Lungs clear, pox 95% on RA. +bs, tolerating PO intake, DTV. Cordis and PIV flush easily. LP CT w red
drainage, surgical site w glue intact, Plan of care reviewed w the pt and questions encouraged.
--- NOTE | 2025-02-02 10:21 | W.PN.CD ---
Today's Communication / Plan
-
OOB and ISB
Slow resumption of anti-HTN
Impression / Plan
-
60 y/o male (patient of Dr. Bland) with hypertension, dyslipidemia, improved ICM (previously EF 40%), and hx STEMI/CAD with stenting who is now s/p MIDCAB.
CAD with hx MO and stenting:
-now s/p robotic assisted MIDCAB (single-vessel bypass REINOSO in situ to LAD). Robotic assisted harvest of internal mammary artery with anterior mini thoracotomy for CABG with Dr. Worrell 02/01/25.
-off pressor support
-post-op EKG stable in SR
-follow telemetry
-ASA, statin, BB
HTN:
-monitor post-op
- re-initiate anti-HTN
HLD:
-statin
ICM, improved:
-EF was 40%, now arpund 50%
-on ARB and BB as OP
Data:
Echo 01/24/25: Overall left ventricular function low normal with wall motion abnormality. EF 50 to 55%. Stage I diastolic dysfunction. No significant valve disease.
Physical Exam
Vital Signs/Labs
Vital Signs
Temp Pulse Resp BP Pulse Ox
98.2 F 75 27 112/71 95
02/02/25 08:00 02/02/25 09:00 02/02/25 09:00 02/02/25 08:20 02/02/25 10:00
02/01/25 02/02/25 02/03/25
06:59 06:59 06:59
Actual Weight 172 lb 13.478 oz 176 lb 9.444 oz
02/02/25 04:24
02/02/25 04:24
PT 16.3 Sec (11.4-14.6) H 02/01/25 11:31
INR 1.26 02/01/25 11:31
APTT 33.5 Sec (23.4-35.0) 02/01/25 11:31
Magnesium 2.0 mg/dl (1.6-2.3) 02/02/25 04:24
Physical Exam
Constitutional: No acute distress
EENT: Anicteric
Cardiovascular: Rhythm & rate is regular
Respiratory: Respiratory effort normal and Lungs clear to auscul.
GI: Soft
Neuro/Psych: AO x 3
Data Reviewed
-
Date of Service: February 02, 2025
EKG: Tracing Personally Visualized and interpreted (sr)
Echo: Report Reviewed by me
Labs: Labs Reviewed by me
[2025-02-02 11:08] LABS: Glucose - Point of Care 116 mg/dl (70-99)
--- NOTE | 2025-02-02 11:14 | CM ---
CM following for DC planning needs.
Patient POD#[address] Surg[address]
Met w/ patient at bedside; son also present.
Pt. feels well.
We reviewed DC plan for home w/ CT Transitional Care RN.
CM will cont. to follow.
[2025-02-02] MEDS: NSS IV (11:29)
--- NOTE | 2025-02-02 12:47 | PTCARENOTE ---
Glycemic protocol discontinued as ordered. Minimal output from CT. Pt denies pain.
[2025-02-02] MEDS: MAGNESIUM OXIDE 500 MG PO ×2 (12:48→20:26)
[2025-02-02] MEDS: FERRLECIT 110 MG IV (14:13)
[2025-02-02] MEDS: ROXICODONE 2.5 MG PO (14:21)
--- NOTE | 2025-02-02 15:57 | PTCARENOTE ---
pt ambulating in room, VSS, sinus rhythm maintained on tele.
--- NOTE | 2025-02-02 20:30 | PTCARENOTE ---
Patient received resting in bed. Patient's at bedside. Primarily [place] Islander speaking - Language Line Utilized. Patient A+A+Ox3. No neurological deficits noted. Roxicodone 5mg PO for pain management. Room air. SpO2 91%. Left Pleural chest
tube intact and patent - Minimal drainage - No air leak. Dressing intact. Sinus Rhythm. Heart rate 80's. Patient with no c/o chest pain, pressure or discomfort. Normoactive bowel sounds. No BM. No c/o nausea. No vomiting. Voiding. Left
lateral chest incision and puncture sites - Intact - Surgical adhesive - Open to air. Positive, palpable pulses. Patient with no c/o back or flank pain. Assessment as documented.
[2025-02-03] VITALS (12 sets, daily range): BP systolic 98–114; BP diastolic 64–73; PULSE 83; O2SAT 92–95; BMI 25.9
--- NOTE | 2025-02-03 | PTCARENOTE ---
Patient sleeping without difficulty. Patient's sleeping in room. Assessment as documented.
--- NOTE | 2025-02-03 00:16 | W.PN.CT ---
Addendum entered and electronically signed by William Petit MD 02/03/25 09:05:
I saw and examined the patient.
The PA's note was reviewed and I agree with the note.
Comment:
POD#2 s/p robotic CABG
Doing well. CT out. IJ removed.
OOB/IS/ambulate
D/C planning for potentially tomorrow
ASA/plavix, BB, statin
Original Note:
Today's Communication / Plan
-
Plan:
-No major issues overnight. Hemodynamically and neurologically intact
-Off all drips
-Consider d/c of remaining L pleural chest tube: 60/180
-Will switch Lopressor to Toprol XL given hx of ICM
-Cont. current meds (ASA, Plavix, Lipitor, Amio, Toprol XL, Protonix)
-Check wt, diuresis
-No swan
-Maintain cordis another day
-Encourage use of IS
-OOB into chair/Ambulate
-Home likely tomorrow
Assessment / Plan
-
-CAD - s/p Robotic assisted MIDCAB (single-vessel bypass REINOSO in situ to LAD) by Dr. Worrell on 02/01/25, pod #2
- LVEF 50% pre and postop with no significant regional wall motion abnormalities
- Coronary artery disease involving the proximal LAD, chronic total occlusion
- Recent STEMI requiring PCI intervention
- Hypertension
- Hyperlipidemia
- Ischemic cardiomyopathy with LVEF of approximately 40% with severe hypokinesis of the inferior wall
- Acute postop blood loss anemia- stable, no transfusion
- Acute postop hypovolemia with subsequent hypervolemia
- Acute postop atelectasis
Discussed patient care with: Cardiology, Nursing, Respiratory Therapy, Pharmacy and Care Team
Subjective
-
Date of Service: February 03, 2025
Pt c/o mild incisional pain, otherwise feels well
Objective Data
-
PT 16.3 Sec (11.4-14.6) H 02/01/25 11:31
INR 1.26 02/01/25 11:31
APTT 33.5 Sec (23.4-35.0) 02/01/25 11:31
Vital Signs
Vital Signs
Temp Pulse Resp BP Pulse Ox
98.0 F 76 16 100/63 91
02/02/25 20:10 02/02/25 22:37 02/02/25 20:10 02/02/25 22:37 02/02/25 20:10
CT Intake/Output/Weight
02/02/25 02/02/25 02/03/25
06:59 18:59 06:59
Intake Total 903.2 / 1934.9 251.8 / 521.8 270 / 521.8
Output Total 840 / 1330 520 / 520 0 / 520
Balance 63.2 / 604.9 -268.2 / 1.8 270 / 1.8
SaO2: 92 (RA)
Physical Exam
-
General: Awake, Oriented and AOx3
Cardiovascular: Regular rate & rhythm, No Murmurs, No Rub and No Gallop
Respiratory: Decreased Breath Sounds (at bases, otherwise clear)
Sternum: Stable
Incision: Clean, Dry, Intact and Dressing Intact
Extremities: Other (+trace edema)
Data Reviewed
-
Lab Results: Results Reviewed
Medications: Active Meds Reviewed
Chest X-Ray: Report Reviewed and Image Reviewed
ECG: Report Reviewed and Image Reviewed
[2025-02-03] MEDS: NSS 500 IV (03:49)
[2025-02-03] MEDS: ROXICODONE 5 MG PO (04:00)
[2025-02-03 04:09] LABS: Hematocrit 34.5 % (39.0-52.0); Hemoglobin 11.7 g/dL (13.0-18.0); Mean Corp Hgb Conc. 33.9 g/dL (33.0-37.0); Mean Corpuscular Hgb 31.7 pg (27.0-31.0); Mean Corpuscular Volume 93.5 fL (80.0-94.0); Mean Platelet Volume 9.7 fL (7.4-10.4); Platelet Count 208 10^3/uL (130-400); Red Blood Cell Count 3.69 10^6/uL (4.70-6.10); Red Cell Dist. Width 12.9 % (11.5-14.5); White Blood Cell Count 12.3 10^3/uL (4.8-10.8)
--- NOTE | 2025-02-03 04:15 | PTCARENOTE ---
Patient resting in bed. Patient A+A+Ox3. No neurological deficits noted. AM lab work collected and sent. Left Pleural chest tube intact and patent - 20 ml serosanguineous drainage - No air leak. Roxicodone 5 mg PO for pain management. OOB to
chair in AM. Assessment/Interventions as documented.
[2025-02-03 04:34] LABS: Blood Urea Nitrogen 25 mg/dl (9-20); Calcium 8.6 mg/dl (8.4-10.2); Carbon Dioxide 28 mmol/L (22-30); Chloride 107 mmol/L (98-107); Estimated Creatinine Clearance 96 ml/min; Glucose 109 mg/dl (70-99); Magnesium 2.1 mg/dl (1.6-2.3); Potassium 4.2 mmol/L (3.5-5.1); Sodium 140 mmol/L (135-145); eGFR > 60.00
[2025-02-03] MEDS: TYLENOL 1000 MG PO ×3 (06:27→22:34)
--- NOTE | 2025-02-03 08:15 | PTCARENOTE ---
CT x1 removed with RN and CT INSTRUCTIONAL TECHNOLOGY SPECIALIST; RIJ Cordis removed per CT INSTRUCTIONAL TECHNOLOGY SPECIALIST order.
[2025-02-03] MEDS: LIPITOR 40 MG PO (08:59)
[2025-02-03] MEDS: SENOKOT-S 1 TABLET PO ×2 (08:59→20:29)
[2025-02-03] MEDS: TOPROL XL 12.5 MG PO ×2 (08:59→20:29)
[2025-02-03] MEDS: MAGNESIUM OXIDE 500 MG PO ×2 (08:59→20:29)
[2025-02-03] MEDS: PLAVIX 75 MG PO (08:59)
[2025-02-03] MEDS: PROTONIX 40 MG PO (09:00)
[2025-02-03] MEDS: LOW STRENGTH ASPIRIN 81 MG PO (09:00)
[2025-02-03] MEDS: LIDOCAINE 4% PATCH 1 PATCH TOPICAL (09:00)
[2025-02-03] MEDS: PACERONE 200 MG PO ×3 (09:00→22:35)
[2025-02-03] MEDS: BACTROBAN 2% OINTMENT 1 APPLIC NASAL ×2 (09:00→20:29)
[2025-02-03] MEDS: NEURONTIN 100 MG PO ×3 (09:01→22:34)
--- NOTE | 2025-02-03 11:41 | PTCARENOTE ---
Received pt AOx3, family at bedside. Language line used to do assessment and administer medications. All questions answered. L flank dressing c/d/i s/p CT removal. NSR on monitor. BP wnl. 94% on RA. LS diminished. OOB ambulating in room w/ standby
assist. Trance LE edema noted. Reports only mild pain L CW, Lidocaine patch applied. Full assessment as documented. Will continue to monitor.
--- NOTE | 2025-02-03 12:00 | PTCARENOTE ---
VSS. Pt walked halls. OOB in chair. No complaints.
[2025-02-03] MEDS: FERRLECIT 110 MG IV (13:56)
--- NOTE | 2025-02-03 15:57 | PTCARENOTE ---
VSS. Pt walked halls w/ standby assist only. No complaints.
[2025-02-03] MEDS: CALCIUM GLUCONATE 100 IV (20:29)
--- NOTE | 2025-02-03 20:45 | PTCARENOTE ---
Patient received sitting on side of bed eating dinner. Family at bedside. Patient A+A+Ox3. No neurological deficits noted. No c/o pain or discomfort. Room air. SpO2 93%. Chest tube dressing intact. Sinus Rhythm. Heart rate 80's. Blood
pressure 108/69 (80). Calcium Gluconate 2,000mg/100ml IV over 1hr ordered by NAUN for CT Surgery and infusing without difficulty. Normoactive bowel sounds. No BM. No c/o nausea. No vomiting. Voiding without difficulty. Left lateral chest
incision/puncture sites intact and open to air. Positive, palpable pulses. Ambulating in room and hallway with minimal assistance. Patient with no c/o back or flank pain. Assessment as documented.
--- NOTE | 2025-02-04 | PTCARENOTE ---
Patient ambulated in hallway before bed - Walked to lounge and then back to room without difficulty. Patient now sleeping. Patient's sleeping in room. Assessment as documented.
--- NOTE | 2025-02-04 03:18 | W.PN.CT ---
Addendum entered and electronically signed by William Petit MD 02/04/25 09:18:
I saw and examined the patient.
The PA's note was reviewed and I agree with the note.
Comment:
POD#3 s/p robo-CABG x 1
Doing excellent.
D/C home today
Original Note:
Today's Communication / Plan
-
Plan:
-No major issues overnight. Hemodynamically and neurologically intact
-Off all drips
-Cont. current meds (ASA, Plavix, Lipitor, Amio, Toprol XL, Protonix)
-F/U 2-view cxr
-Encourage use of IS
-OOB into chair/Ambulate
-Home today
Assessment / Plan
-
-CAD - s/p Robotic assisted MIDCAB (single-vessel bypass REINOSO in situ to LAD) by Dr. Worrell on 02/01/25, pod #3
- LVEF 50% pre and postop with no significant regional wall motion abnormalities
- Coronary artery disease involving the proximal LAD, chronic total occlusion
- Recent STEMI requiring PCI intervention
- Hypertension
- Hyperlipidemia
- Ischemic cardiomyopathy with LVEF of approximately 40% with severe hypokinesis of the inferior wall
- Acute postop blood loss anemia- stable, no transfusion
- Acute postop hypovolemia with subsequent hypervolemia
- Acute postop atelectasis
Discussed patient care with: Cardiology, Nursing, Respiratory Therapy, Pharmacy and Care Team
Subjective
-
Date of Service: February 04, 2025
Pt c/o mild incisional pain, otherwise feels well
Objective Data
-
PT 16.3 Sec (11.4-14.6) H 02/01/25 11:31
INR 1.26 02/01/25 11:31
APTT 33.5 Sec (23.4-35.0) 02/01/25 11:31
Vital Signs
Vital Signs
Temp Pulse Resp BP Pulse Ox
98.1 F 71 16 109/67 91
02/03/25 22:30 02/04/25 02:00 02/03/25 22:30 02/03/25 22:35 02/03/25 22:[address] Intake/Output/Weight
02/03/25 02/03/25 02/04/25
06:59 18:59 06:59
Intake Total 600 / 851.8 0 / 240 240 / 240
Output Total 460 / 980
Balance 140 / -128.2 0 / 240 240 / 240
SaO2: 94 (RA)
Physical Exam
-
General: Awake, Oriented and AOx3
Cardiovascular: Regular rate & rhythm, No Murmurs, No Rub and No Gallop
Respiratory: Decreased Breath Sounds (at bases, otherwise clear )
Sternum: Stable
Incision: Clean, Dry, Intact and Dressing Intact
Extremities: No Edema
Data Reviewed
-
Lab Results: Results Reviewed
Medications: Active Meds Reviewed
Chest X-Ray: Report Reviewed and Image Reviewed
ECG: Report Reviewed and Image Reviewed
[2025-02-04 03:27] VITALS: BP 107/67
[2025-02-04 03:30] VITALS: BP 107/67
--- NOTE | 2025-02-04 04:00 | PTCARENOTE ---
Patient sleeping. Patient A+A+Ox3 during periods of care. No neurological deficits noted. AM lab work collected and sent. OOB in AM. Assessment/Interventions as documented.
[2025-02-04 04:21] LABS: Hematocrit 38.9 % (39.0-52.0); Mean Corp Hgb Conc. 33.4 g/dL (33.0-37.0); Mean Corpuscular Hgb 31.4 pg (27.0-31.0); Mean Platelet Volume 10.1 fL (7.4-10.4); Platelet Count 237 10^3/uL (130-400); Red Blood Cell Count 4.14 10^6/uL (4.70-6.10); Red Cell Dist. Width 12.8 % (11.5-14.5)
[2025-02-04 04:48] LABS: Blood Urea Nitrogen 19 mg/dl (9-20); Calcium 9.2 mg/dl (8.4-10.2); Carbon Dioxide 28 mmol/L (22-30); Chloride 108 mmol/L (98-107); Estimated Creatinine Clearance 96 ml/min; Glucose 100 mg/dl (70-99); Magnesium 2.2 mg/dl (1.6-2.3); Potassium 4.4 mmol/L (3.5-5.1); Sodium 141 mmol/L (135-145); eGFR > 60.00
[2025-02-04 06:00] VITALS: BMI 25.4
[2025-02-04] MEDS: TYLENOL PO (06:25)
[2025-02-04 08:00] VITALS: BP 134/72
--- NOTE | 2025-02-04 08:23 | PTCARENOTE ---
assumed care of pt from previous shift RN, sinus rhythm on tele, VSS, + peripheral pulses, no edema. Lungs diminished, pox 94-95% on RA, coughing and deep breathing encouraged. +bs, tolerating PO intake, voids spontaneously. Surgical sites stable,
PIV flushes easily. Plan of care reviewed w the pt and questions encouraged.
--- NOTE | 2025-02-04 10:09 | W.DCSUMMARY ---
Discharge Summary
Discharge Data
Date of Admission: 02/01/25
Date of Discharge: 02/04/25
-
Pending Results: No
Hospital Course
Primary care physician: Tonny Barrera
Outpatient non categorical preschool teacher: Taylor Bland
Inpatient consultants: [facility] Cardiology, pulmonary production line technician
Procedures:
1. MIDCAB
Primary Diagnosis:
1. Coronary artery disease
Secondary Diagnoses:
1. History of STEMI (11/2024)
2. Recent JUSTUS to RCA (11/30/2024)
3. Hypertension
4. Hyperlipidemia
5. 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
6. Incidental finding of pulmonary nodules on CT angio�follow-up CT chest recommended in 12 months
7. Acute postop surgical blood loss anemia�expected
HPI: 60 year old male electively admitted 02/01/25 for CABG due to LAD disease. Recent JUSTUS-RCA d/t STEMI (11/30/24) and stents to LM/dLCx.
Hospital course: Patient underwent robotic assisted MIDCAB x 1 (REINOSO to LAD) by Dr. Cecilio Worrell. Postprocedure ALESSANDRA reported an EF of 55-60% which was improved from preop EF of 40%. Patient received no intraoperative blood products. He had no
epicardial wires. Patient was extubated in the operating room and returned to CVICU on Levophed and insulin. Levophed was weaned off later the day of surgery. Aspirin/Plavix were initiated and Insulin infusion was discontinued on postoperative
day #1 per protocol. Right IJ and chest tube were removed on postoperative day #2. Patient ambulated in halls with cardiac rehab and was deemed stable for home destination at discharge. Patient experienced no arrhythmias and prophylactic
amiodarone was discontinued on discharge. Blood pressure was well-controlled therefore home metoprolol was changed to Toprol 25 mg daily and valsartan was discontinued. Hemoglobin was 13 and creatinine 0.8 on day of discharge. A two-view chest
x-ray reported no pneumothorax or pleural effusions. Patient notified of incidental finding of pulmonary nodules on CT angiogram preop and recommended to follow-up for a CAT scan in 12 months.
Home medication changes:
Stop valsartan
Metoprolol tartrate 50 mg twice daily changed to metoprolol succinate 25 mg daily
Famotidine changed to pantoprazole while on clopidogrel.
Discharge Plan
-
Patient Disposition: Home (Routine Discharge)
Discharge Diagnosis/Procedures: MIDCABG x 1
Condition: Good
Diet: Low Cholesterol and Low Sodium
Activity: No strenuous activity
Driving Restrictions: Not until seen by your Dr
Bathing Restrictions: OK to Shower
Other Services: Cardiac Rehab
Specialty Instructions: Weigh Daily- Call MD for wt gain/loss 3 lbs overnight/5 lbs in 1 week
Referrals:
CT Transitional Care Nurse [Outside] (The Cardiothoracic Transitional Care Nurse will call you to set up a visit in 1-2 days.)
Tonny Barrera MD [Family Provider] -
Katalina Bland MD [Active] - 03/20/25 1:20 pm (* Your 04/[address] Bland was changed to this * )
Cecilio Worrell MD [Active] - 03/06/25 2:15 pm
Prescriptions:
New
clopidogrel 75 mg Tablet
75 mg PO DAILY Qty: 30 2RF
metoprolol succinate [Toprol XL] 25 mg tablet extended release 24 hr
25 mg PO DAILY Qty: 30 2RF
acetaminophen 325 mg Tablet
650 mg PO Q4HPRN PRN (Reason: mild pain,headache,temp >101F ) Qty: 0 0RF
pantoprazole 40 mg Tablet,Delayed Release (Dr/Ec)
40 mg PO DAILY Qty: 30 2RF
gabapentin 100 mg Capsule
100 mg PO TID Qty: 30 0RF
oxycodone 5 mg Tablet
5 mg PO Q4HPRN PRN (Reason: severe pain) Qty: 10 0RF
Continued
aspirin
81 mg PO 1XD
atorvastatin 40 mg Tablet
40 mg 1XD
Discontinued
famotidine 20 mg Tablet
20 mg PO HS
metoprolol tartrate 50 mg Tablet
50 mg PO Q12H
valsartan 40 mg Tablet
40 mg 1XD
Discharge Orders:
Discharge Patient (As Directed); Ordered 02/04/25
Ordered By: Maria Del Carmen Driver
Care Plan Goals
Care Plan Goals:
Problem: Readiness for enhanced knowledge related to diagnosis and treatment plan
Goal: Understand your diagnosis and treatment plan needs, including medications if applicable.
Instructions: Know your diagnosis, underlying causes and treatment plan options, including medications if applicable. Consult with your health care team to learn about your diagnosis and treatment plan, including medications if applicable.
Discharge Date and Time
Discharge Date/Time: 02/04/25 12:55
Print Language: [place] Citizen
[2025-02-04] MEDS: MAGNESIUM OXIDE 500 MG PO (10:10)
[2025-02-04] MEDS: TOPROL XL 12.5 MG PO (10:10)
[2025-02-04] MEDS: PROTONIX 40 MG PO (10:11)
[2025-02-04] MEDS: LOW STRENGTH ASPIRIN 81 MG PO (10:11)
[2025-02-04] MEDS: SENOKOT-S 1 TABLET PO (10:11)
[2025-02-04] MEDS: LIPITOR 40 MG PO (10:11)
[2025-02-04] MEDS: NEURONTIN 100 MG PO (10:11)
[2025-02-04] MEDS: PACERONE 200 MG PO (10:11)
[2025-02-04] MEDS: PLAVIX 75 MG PO (10:12)
[2025-02-04] MEDS: LIDOCAINE 4% PATCH TOPICAL (10:12)
[2025-02-04] MEDS: BACTROBAN 2% OINTMENT 1 APPLIC NASAL (10:12)
--- NOTE | 2025-02-04 10:27 | PTCARENOTE ---
pt sent for 2 view cxr
[2025-02-04] MEDS: NSS IV (11:33)
[2025-02-04 12:00] VITALS: BP 104/68
--- NOTE | 2025-02-04 12:52 | PTCARENOTE ---
post op dressings & tele monitor removed. pt tolerated showering independently. IV line removed. discharge instructions, medication list and follow up appointments reviewed w the pt his family. Questions encouraged.
== END 2025-02-04 12:55 | disposition home or self-care (01) | DRG 235 ==
LOC: CVICU 04:36
PROVIDERS: Anesthesiology; Nurse Practitioner; ADMITTING PHYSICIAN Thoracic Surgery (Cardiothoracic Vascular Surgery); CONSULT PHYSICIAN Internal Medicine Cardiovascular Disease; CONSULT PHYSICIAN Internal Medicine Critical Care Medicine; FAMILY PHYSICIAN Internal Medicine
PROC: 8E0W0CZ Robotic Assisted Procedure of Trunk Region, Open Approach (ICD-10-PCS; 2025-02-01)
PROC: 02100Z9 Bypass Coronary Artery, One Artery from Left Internal Mammary, Open Approach (ICD-10-PCS; 2025-02-01)
PROC: B24BZZ4 Ultrasonography of Heart with Aorta, Transesophageal (ICD-10-PCS; 2025-02-01)
DX: I25.10 Atherosclerotic heart disease of native coronary artery without angina pectoris (principal); J96.02 Acute respiratory failure with hypercapnia; D62 Acute posthemorrhagic anemia; I50.32 Chronic diastolic (congestive) heart failure; J98.11 Atelectasis; E78.5 Hyperlipidemia, unspecified; I11.0 Hypertensive heart disease with heart failure; I25.5 Ischemic cardiomyopathy; K21.9 Gastro-esophageal reflux disease without esophagitis; I25.82 Chronic total occlusion of coronary artery; E83.51 Hypocalcemia; R91.1 Solitary pulmonary nodule; E86.1 Hypovolemia; I25.2 Old myocardial infarction; Z79.82 Long term (current) use of aspirin; Z79.02 Long term (current) use of antithrombotics/antiplatelets; Z79.899 Other long term (current) drug therapy; Z82.49 Family history of ischemic heart disease and other diseases of the circulatory system; Z87.891 Personal history of nicotine dependence
CPT/HCPCS: 36415; 71045; 71046; 80048; 80053; 81003; 81015; 82248; 82330; 82565; 82805; 82947; 82962; 83036; 83735; 84132; 84302; 84520; 85014; 85018; 85025; 85027; 85049; 85610; 85730; 86850; 86900; 86901; 86920; 87070; 93005; 93312; 93320; 93325; 93880; 94010; 99406; J2916